=== PATIENT | female | born 1995 | race Caucasian/White ===

== ENCOUNTER 2022-02-01 10:07 | Emergency (ER) | payer OTHER ==
[2022-02-01] MEDS ORDERED: Dexamethasone 10 MG/ML SDV IM ONE (10:42)
[2022-02-01] MEDS ORDERED: diphenhydrAMINE 50 MG/ML SDV IM ONE (10:42)
== END 2022-02-01 11:35 | disposition home or self-care (01) ==
LOC: JD.ED 10:07
DX: R06.02 Shortness of breath (principal)
CPT/HCPCS: 71045; 96372; 99284; J1100; J1200; 99282